=== PATIENT | female | born 1985 | race African-American/Black ===

== ENCOUNTER 2022-01-30 02:18 | Emergency (ER) | payer OTHER ==
[2022-01-30] MEDS ORDERED: Bupivacaine PF 0.5% 30 ML VIAL ONE (03:38)
== END 2022-01-30 03:46 | disposition home or self-care (01) ==
LOC: CSHERS 02:18
DX: L73.9 Follicular disorder, unspecified (principal); G43.909 Migraine, unspecified, not intractable, without status migrainosus; I10 Essential (primary) hypertension; F17.210 Nicotine dependence, cigarettes, uncomplicated; Z79.899 Other long term (current) drug therapy
CPT/HCPCS: 99282; S0020

== ENCOUNTER 2024-07-16 20:59 | Emergency (ER) | payer BC, OTHER ==
[2024-07-16] MEDS ORDERED: Ibuprofen 200 MG TAB ONE (22:20)
[2024-07-16] MEDS ORDERED: Acetaminophen 500 MG TAB ONE (22:21)
== END 2024-07-16 23:05 | disposition left against medical advice (07) ==
LOC: CSHERS 20:59
DX: Z53.21 Procedure and treatment not carried out due to patient leaving prior to being seen by health care provider (principal)

== ENCOUNTER 2025-07-03 19:37 | Inpatient (IN) | payer BC ==
[2025-07-03] MEDS: NIFEdipine 10 MG CAP ONE (20:40)
[2025-07-03 20:45] VITALS: BMI 33.1
[2025-07-03] MEDS ORDERED: NIFEdipine 10 MG CAP PO PRN (20:53)
[2025-07-03] MEDS ORDERED: Calcium Gluc 4.6 MEQ/10 ML (100 MG/ML) SLOW IVP PRN ×2 (20:53→21:22)
[2025-07-03] MEDS: NIFEdipine 10 MG CAP PO SCH (20:54)
[2025-07-03 21:04] LABS: #Basophils 0.04 10x3/uL (0.0-0.2); #Eosinophils 0.12 10x3/uL (0.0-0.5); #Monocytes 0.99 10x3/uL (0.0-1.1); #Neutrophils 9.18 10x3/uL (1.5-8.4); %Basophils 0.3 % (0.0-2.0); %Eosinophils 0.9 % (0.0-6.0); %Lymphocytes 19.1 % (18.0-47.0); %Monocytes 7.6 % (0.0-10.0); %Neutrophils 70.9 % (40.0-75.0); Hematocrit 27.8 % (34.9-44.5); Hemoglobin 9.7 g/dL (12.0-15.5); Mean Corpuscular Hemoglobin 26.6 pg (27.0-33.0); Mean Corpuscular Volume 76.2 fL (81.6-98.3); Platelet Count 298 10x3/uL (150-450); Red Blood Cell (RBC) Count 3.65 10x6/uL (3.90-5.03); White Blood Cell (WBC) Count 12.96 10x3/uL (3.5-10.5)
[2025-07-03] MEDS: NIFEdipine 10 MG CAP PO PRN (21:04)
[2025-07-03 21:11] LABS: ALT (SGPT) 8 U/L (Less than 34); AST (SGOT) 11 U/L (11-34); Albumin 2.9 g/dL (3.1-4.5); Alkaline Phosphatase 90 U/L (40-110); Anion Gap 13 mmol/L (10-20); BUN (Urea Nitrogen) 6 mg/dL (7.0-18.7); Bilirubin, Total 0.1 mg/dL (0.3-1.2); Calc. Creatinine Clearance 171 mL/min (70-130); Calcium 8.9 mg/dL (7.8-10.44); Carbon Dioxide 19 mmol/L (22-29); Chloride 110 mmol/L (98-107); Globulin 3.4 g/dL (2.4-3.5); Glucose 110 mg/dL (70-105); Potassium 3.7 mmol/L (3.5-5.1); Sodium 138 mmol/L (136-145)
[2025-07-03] MEDS ORDERED: hydrALAZINE 20 MG/ML VIAL SLOW IVP PRN (21:22)
[2025-07-03 21:28] LABS: Cocaine Metabolite Screen Negative (Negative); THC/Cannabinoid Screen Negative (Negative); Tricyclic Screen Negative (Negative)
[2025-07-03 21:34] LABS: Protein, Urine Random Quant 36.0 mg/dL (1-14)
[2025-07-03 21:55] LABS: Influenza A by NAA Not Detected (NotDetected); Influenza B by NAA Not Detected (NotDetected); SARS-CoV-2 NAA Rapid Test Not Detected (NotDetected)
[2025-07-04] MEDS: NIFEdipine XL 30 MG ER.TAB PO SCH ×2 (16:09→16:10)
[2025-07-04] MEDS: hydrALAZINE 20 MG/ML VIAL ONE (19:05)
[2025-07-06 10:00] LABS: #Basophils Less than 0.03 10x3/uL (0.0-0.2); #Eosinophils 0.06 10x3/uL (0.0-0.5); #Monocytes 1.34 10x3/uL (0.0-1.1); #Neutrophils 11.79 10x3/uL (1.5-8.4); %Basophils 0.1 % (0.0-2.0); %Eosinophils 0.4 % (0.0-6.0); %Lymphocytes 13.2 % (18.0-47.0); %Monocytes 8.7 % (0.0-10.0); %Neutrophils 76.3 % (40.0-75.0); Hematocrit 23.6 % (34.9-44.5); Hemoglobin 8.1 g/dL (12.0-15.5); Mean Corpuscular Hemoglobin 26.3 pg (27.0-33.0); Mean Corpuscular Volume 76.6 fL (81.6-98.3); Platelet Count 251 10x3/uL (150-450); Red Blood Cell (RBC) Count 3.08 10x6/uL (3.90-5.03); White Blood Cell (WBC) Count 15.44 10x3/uL (3.5-10.5)
[2025-07-06 10:21] LABS: ALT (SGPT) 14 U/L (Less than 34); AST (SGOT) 18 U/L (11-34); Albumin 2.7 g/dL (3.1-4.5); Alkaline Phosphatase 71 U/L (40-110); Anion Gap 10 mmol/L (10-20); BUN (Urea Nitrogen) 8 mg/dL (7.0-18.7); Bilirubin, Total 0.1 mg/dL (0.3-1.2); Calc. Creatinine Clearance 171 mL/min (70-130); Calcium 8.5 mg/dL (7.8-10.44); Carbon Dioxide 18 mmol/L (22-29); Chloride 112 mmol/L (98-107); Globulin 3.4 g/dL (2.4-3.5); Glucose 126 mg/dL (70-105); Potassium 3.4 mmol/L (3.5-5.1); Sodium 137 mmol/L (136-145)
[2025-07-06 14:00] LABS: Hematocrit 22.7 % (34.9-44.5); Hemoglobin 8.0 g/dL (12.0-15.5); Platelet Count 239 10x3/uL (150-450)
[2025-07-06 22:16] LABS: Protein, Urine Random Quant 13.0 mg/dL (1-14)
[2025-07-07 04:53] VITALS: BP 113/60; TEMP 98
== END 2025-07-07 13:42 | disposition home health service (06) | DRG 833 ==
LOC: CSHLD/OP 19:37 → CSHLD 21:10 → CSHANTE 07-05 12:08
PROVIDERS: ADMIT Obstetrics & Gynecology; ATTEND Obstetrics & Gynecology
DX: O11.3 Pre-existing hypertension with pre-eclampsia, third trimester (principal); O99.891 Other specified diseases and conditions complicating pregnancy; F17.210 Nicotine dependence, cigarettes, uncomplicated; O99.333 Smoking (tobacco) complicating pregnancy, third trimester; Z3A.31 31 weeks gestation of pregnancy
CPT/HCPCS: 36415; 71045; 71275; 76815; 76819; 80053; 80306; 82570; 82728; 83010; 83615; 84156; 84443; 85025; 85046; 85384; 87070; 87205; 87633; 87636; 93005; 93010; 93306; 94760; 99285; J0360; J0702

== ENCOUNTER 2025-07-23 18:00 | Inpatient (IN) | payer BC ==
[2025-07-23 20:47] VITALS: BMI 32.5
[2025-07-23] MEDS ORDERED: hydrALAZINE 20 MG/ML VIAL SLOW IVP PRN (21:14)
[2025-07-23] MEDS ORDERED: Acetaminophen 500 MG TAB PO PRN (21:14)
[2025-07-23] MEDS ORDERED: Lidocaine 1% (PF) 30 ML VIAL SC PRN (21:14)
[2025-07-23] MEDS ORDERED: Calcium Gluc 4.6 MEQ/10 ML (100 MG/ML) SLOW IVP PRN (21:14)
[2025-07-23] MEDS ORDERED: Ibuprofen 800 MG TAB PO PRN (21:14)
[2025-07-23] MEDS ORDERED: Diphenoxylate HCl/Atropine Tablet PO PRN ×2 (21:14)
[2025-07-23] MEDS ORDERED: Tranexamic Acid 1,000 MG/10 ML VIAL IVP PRN (21:14)
[2025-07-23] MEDS ORDERED: Ondansetron PF 4 MG/2 ML Vial IVP PRN (21:14)
[2025-07-23] MEDS ORDERED: Carboprost 250 MCG/ML AMP IM PRN (21:14)
[2025-07-23] MEDS ORDERED: Penicillin G Potassium 5 MILL.UNITS in Sodium Chloride 0.9% 100 ML IVPB SCH (21:15)
[2025-07-23] MEDS ORDERED: Oxytocin 30 units/NS 500 ML 500 ML IV SCH ×3 (21:15)
[2025-07-23 21:37] LABS: #Basophils Less than 0.03 10x3/uL (0.0-0.2); #Eosinophils 0.11 10x3/uL (0.0-0.5); #Monocytes 0.78 10x3/uL (0.0-1.1); #Neutrophils 7.75 10x3/uL (1.5-8.4); %Basophils 0.2 % (0.0-2.0); %Eosinophils 1.0 % (0.0-6.0); %Lymphocytes 18.3 % (18.0-47.0); %Monocytes 7.3 % (0.0-10.0); %Neutrophils 72.7 % (40.0-75.0); Hematocrit 25.9 % (34.9-44.5); Hemoglobin 9.2 g/dL (12.0-15.5); Mean Corpuscular Hemoglobin 26.5 pg (27.0-33.0); Mean Corpuscular Volume 74.6 fL (81.6-98.3); Platelet Count 272 10x3/uL (150-450); Red Blood Cell (RBC) Count 3.47 10x6/uL (3.90-5.03); White Blood Cell (WBC) Count 10.66 10x3/uL (3.5-10.5)
[2025-07-23 21:43] LABS: ALT (SGPT) 7 U/L (Less than 34); AST (SGOT) 11 U/L (11-34); Albumin 2.6 g/dL (3.1-4.5); Alkaline Phosphatase 105 U/L (40-110); Anion Gap 11 mmol/L (10-20); BUN (Urea Nitrogen) 8 mg/dL (7.0-18.7); Bilirubin, Total 0.1 mg/dL (0.3-1.2); Calc. Creatinine Clearance 166 mL/min (70-130); Calcium 8.7 mg/dL (7.8-10.44); Carbon Dioxide 18 mmol/L (22-29); Chloride 111 mmol/L (98-107); Globulin 3.7 g/dL (2.4-3.5); Glucose 128 mg/dL (70-105); Potassium 3.3 mmol/L (3.5-5.1); Sodium 137 mmol/L (136-145)
[2025-07-23 21:43] LABS: Protein, Urine Random Quant 49.0 mg/dL (1-14)
[2025-07-23 22:08] LABS: Syphilis Antibody Index 0.11 S/CO (<1.00 Non-Reactive)
[2025-07-23 22:32] LABS: HIV (1/2) Antibody/Antigen Non-Reactive (NonReactive); HIV 1/2 INDEX 0.14 S/CO (<1.00); Hep B Surf Ag - L&D Non-Reactive S/CO (NonReactive)
[2025-07-24] MEDS ORDERED: Penicillin G 2.5 MILL.units 2.5 MILL.UNITS in Premix 1 BAG IVPB SCH (01:15)
[2025-07-24] MEDS ORDERED: diphenhydrAMINE 50 MG/ML VIAL IVP PRN ×2 (02:53→10:01)
[2025-07-24] MEDS ORDERED: Acetaminophen 325 MG TAB PO PRN (02:53)
[2025-07-24] MEDS ORDERED: Ondansetron PF 4 MG/2 ML Vial IVP PRN ×3 (02:53→10:01)
[2025-07-24] MEDS ORDERED: Communication Order-Pharmacy FS SCH ×2 (03:00→10:15)
[2025-07-24] MEDS: Magnesium Sulfate 20 gm/500 ml 20 GM/500 ML BAG IVPB SCH (03:30)
[2025-07-24] MEDS: fentaNYL 2 mcg/Ropivacaine 0.2% Epidural 100 ML CADD EPIDURAL SCH (05:26)
[2025-07-24] MEDS ORDERED: Bupivacaine 0.25% HCL 30 ML VIAL ONE (07:00)
[2025-07-24] MEDS ORDERED: hydrALAZINE 20 MG/ML VIAL SLOW IVP PRN (09:18)
[2025-07-24] MEDS ORDERED: Bisacodyl 10 MG SUPP PR PRN (09:18)
[2025-07-24] MEDS ORDERED: Lanolin Ointment 7 GM TUBE TOP PRN (09:18)
[2025-07-24] MEDS ORDERED: Simethicone Chewable 80 MG TAB PO PRN (09:18)
[2025-07-24] MEDS ORDERED: Oxytocin 30 units/NS 500 ML 500 ML IV SCH (09:30)
[2025-07-24] MEDS ORDERED: Meperidine HCl/PF 25 MG (1 mL) VIAL SLOW IVP PRN (10:01)
[2025-07-24] MEDS: Ketorolac Tromethamine 30 MG (1 mL) VIAL IVP SCH (10:51)
[2025-07-24] MEDS ORDERED: Ibuprofen 800 MG TAB PO SCH (14:00)
[2025-07-24] MEDS: NIFEdipine XL 30 MG ER.TAB PO SCH (16:24)
[2025-07-24] MEDS: Acetaminophen 325 MG TAB PO PRN (16:27)
[2025-07-24] MEDS: Ondansetron PF 4 MG/2 ML Vial IVP PRN (16:28)
[2025-07-24] MEDS: Furosemide 40 MG (4 mL) VIAL SLOW IVP SCH (17:48)
[2025-07-24] MEDS: Ketorolac Tromethamine 30 MG (1 mL) VIAL IVP PRN (18:03)
[2025-07-25 05:40] LABS: Hematocrit 21.7 % (34.9-44.5); Hemoglobin 7.6 g/dL (12.0-15.5); Mean Corpuscular Hemoglobin 26.3 pg (27.0-33.0); Mean Corpuscular Volume 75.1 fL (81.6-98.3); Platelet Count 244 10x3/uL (150-450); Red Blood Cell (RBC) Count 2.89 10x6/uL (3.90-5.03); White Blood Cell (WBC) Count 12.37 10x3/uL (3.5-10.5)
[2025-07-25 09:28] LABS: ALT (SGPT) 11 U/L (Less than 34); AST (SGOT) 19 U/L (11-34); Albumin 2.2 g/dL (3.1-4.5); Alkaline Phosphatase 96 U/L (40-110); Anion Gap 11 mmol/L (10-20); BUN (Urea Nitrogen) 8 mg/dL (7.0-18.7); Bilirubin, Total 0.2 mg/dL (0.3-1.2); Calc. Creatinine Clearance 153 mL/min (70-130); Calcium 7.0 mg/dL (7.8-10.44); Carbon Dioxide 20 mmol/L (22-29); Chloride 105 mmol/L (98-107); Globulin 3.3 g/dL (2.4-3.5); Glucose 114 mg/dL (70-105); Potassium 4.2 mmol/L (3.5-5.1); Sodium 132 mmol/L (136-145)
[2025-07-25] MEDS: NIFEdipine XL 30 MG ER.TAB PO SCH (11:10)
[2025-07-25] MEDS: Furosemide 20 MG (2 mL) VIAL SLOW IVP SCH (11:11)
[2025-07-25] MEDS: Ibuprofen 800 MG TAB PO SCH (11:11)
[2025-07-25] MEDS: Sodium Ferric Gluconate 250 MG in Sodium Chloride 0.9% 250 ML 250 ML IVPB SCH (11:11)
[2025-07-25] MEDS: Ferrous Sulfate 325 MG TAB PO SCH (11:12)
[2025-07-25] MEDS: CEFAZOLIN 2 GM VIAL ONE (11:12)
[2025-07-25] MEDS: fentaNYL/Ropivacaine Epidural 100 ML ONE (11:12)
[2025-07-25] MEDS: Oxytocin 10 UNITS/ML VIAL ONE ×2 (11:13)
[2025-07-25] MEDS ORDERED: Acetaminophen 325 MG TAB PO PRN (19:19)
[2025-07-25] MEDS: HYDROcodone/Acetaminophen 5/325 mg Tablet PO PRN (19:24)
[2025-07-26] MEDS ORDERED: Acetaminophen 325 MG TAB PO PRN ×2 (02:11→07:04)
[2025-07-26 06:29] LABS: #Basophils Less than 0.03 10x3/uL (0.0-0.2); #Eosinophils 0.09 10x3/uL (0.0-0.5); #Monocytes 1.13 10x3/uL (0.0-1.1); #Neutrophils 7.31 10x3/uL (1.5-8.4); %Basophils 0.2 % (0.0-2.0); %Eosinophils 0.9 % (0.0-6.0); %Lymphocytes 14.6 % (18.0-47.0); %Monocytes 11.2 % (0.0-10.0); %Neutrophils 72.7 % (40.0-75.0); Hematocrit 21.3 % (34.9-44.5); Hemoglobin 7.4 g/dL (12.0-15.5); Mean Corpuscular Hemoglobin 26.2 pg (27.0-33.0); Mean Corpuscular Volume 75.5 fL (81.6-98.3); Platelet Count 255 10x3/uL (150-450); Red Blood Cell (RBC) Count 2.82 10x6/uL (3.90-5.03); White Blood Cell (WBC) Count 10.06 10x3/uL (3.5-10.5)
[2025-07-26] MEDS: NIFEdipine XL 60 MG ER.TAB PO SCH (08:07)
[2025-07-26] MEDS: Furosemide 20 MG TAB PO SCH (08:07)
[2025-07-26] MEDS: HYDROcodone/Acetaminophen 5/325 mg Tablet PO PRN (13:53)
[2025-07-27] MEDS: NIFEdipine XL 90 MG ER.TAB PO SCH (08:44)
[2025-07-27] MEDS: Sodium Ferric Gluconate 250 MG in Sodium Chloride 0.9% 250 ML 250 ML IVPB SCH (09:30)
[2025-07-28 07:37] VITALS: TEMP 98.3
[2025-07-28] MEDS: hydrALAZINE 20 MG/ML VIAL SLOW IVP SCH ×2 (08:08→09:09)
[2025-07-28] MEDS: Preparation H Ointment 28 GM TUBE TOP PRN (15:05)
[2025-07-28 16:49] VITALS: BP 150/94
[2025-07-28] MEDS ORDERED: NIFEdipine XL 60 MG ER.TAB PO SCH (21:00)
== END 2025-07-28 18:05 | disposition left against medical advice (07) | DRG 783 ==
LOC: CSHLD 19:55 → UNDOADMIN 19:55 → CSHLD 21:14 → UNDOADMIN 07-24 11:55 → CSHLD 07-24 11:55 → CSHPP 07-25 10:50 → UNDODISIN 07-28 13:50
PROVIDERS: ADMIT Family Medicine; ATTEND Family Medicine
PROC: 10D00Z1 Extraction of Products of Conception, Low, Open Approach (ICD-10-PCS; principal; 2025-07-24)
PROC: 0UB60ZZ Excision of Left Fallopian Tube, Open Approach (ICD-10-PCS; 2025-07-24)
PROC: 3E0P7VZ Introduction of Hormone into Female Reproductive, Via Natural or Artificial Opening (ICD-10-PCS; 2025-07-24)
DX: O11.4 Pre-existing hypertension with pre-eclampsia, complicating childbirth (principal); J96.01 Acute respiratory failure with hypoxia; J45.901 Unspecified asthma with (acute) exacerbation; Z37.0 Single live birth; Z3A.34 34 weeks gestation of pregnancy; O60.14X0 Preterm labor third trimester with preterm delivery third trimester, not applicable or unspecified; Z90.721 Acquired absence of ovaries, unilateral; O99.334 Smoking (tobacco) complicating childbirth; G47.33 Obstructive sleep apnea (adult) (pediatric); O99.53 Diseases of the respiratory system complicating the puerperium; Z53.29 Procedure and treatment not carried out because of patient's decision for other reasons
CPT/HCPCS: 36415; 51702; 80053; 82570; 84156; 85025; 85027; 86780; 86850; 86900; 86901; 87340; 87389; 88302; 88307; J0360; J0665; J1885; J1940; J2250; J2274; J2405; J2590; J2916; J3010; J3475; J7050; J7120

== ENCOUNTER 2025-07-30 15:00 | Emergency (ER) | payer BC ==
[2025-07-30] MEDS ORDERED: Magnesium 2 GM/50 ML BAG (IN WATER) ONE (15:37)
[2025-07-30] MEDS ORDERED: hydrALAZINE 20 MG/ML VIAL ONE (15:37)
[2025-07-30 15:57] LABS: #Basophils 0.03 10x3/uL (0.0-0.2); #Eosinophils 0.19 10x3/uL (0.0-0.5); #Monocytes 1.07 10x3/uL (0.0-1.1); #Neutrophils 7.65 10x3/uL (1.5-8.4); %Basophils 0.2 % (0.0-2.0); %Eosinophils 1.6 % (0.0-6.0); %Lymphocytes 23.9 % (18.0-47.0); %Monocytes 8.8 % (0.0-10.0); %Neutrophils 63.2 % (40.0-75.0); Hematocrit 32.8 % (34.9-44.5); Hemoglobin 11.4 g/dL (12.0-15.5); Mean Corpuscular Hemoglobin 26.5 pg (27.0-33.0); Mean Corpuscular Volume 76.1 fL (81.6-98.3); Platelet Count 434 10x3/uL (150-450); Red Blood Cell (RBC) Count 4.31 10x6/uL (3.90-5.03); White Blood Cell (WBC) Count 12.11 10x3/uL (3.5-10.5)
[2025-07-30 16:02] LABS: Glucose, Urine (Dipstick) Normal (Negative); Leukocyte 25 (Negative); Protein, Urine (Dipstick) 15 mg/dl (Neg-Trace); Specific Gravity, Urine 1.015 (1.005-1.030)
[2025-07-30 16:14] LABS: ALT (SGPT) 15 U/L (Less than 34); AST (SGOT) 20 U/L (11-34); Albumin 2.9 g/dL (3.1-4.5); Alkaline Phosphatase 121 U/L (40-110); Anion Gap 15 mmol/L (10-20); BUN (Urea Nitrogen) 18 mg/dL (7.0-18.7); Bilirubin, Total 0.2 mg/dL (0.3-1.2); Calc. Creatinine Clearance 0 mL/min (70-130); Calcium 9.1 mg/dL (7.8-10.44); Carbon Dioxide 21 mmol/L (22-29); Chloride 108 mmol/L (98-107); Globulin 4.1 g/dL (2.4-3.5); Glucose 88 mg/dL (70-105); Magnesium 1.8 mg/dL (1.6-2.6); Potassium 4.0 mmol/L (3.5-5.1); Sodium 140 mmol/L (136-145)
[2025-07-30 16:16] LABS: Bacteria/HPF None Seen HPF (None Seen); CAUTI Indications for Culture Pelvic or flank pain; Urine Culture Reflex No No; WBC/HPF 0-3 HPF (0-3)
[2025-07-30] MEDS ORDERED: Calcium Gluc 4.6 MEQ/10 ML (100 MG/ML) SLOW IVP PRN (16:23)
[2025-07-30] MEDS ORDERED: hydrALAZINE 20 MG/ML VIAL SLOW IVP PRN (16:23)
[2025-07-30] MEDS ORDERED: Magnesium Sulfate 20 gm/500 ml 20 GM/500 ML BAG IVPB SCH (16:30)
[2025-07-30 17:04] LABS: Protein, Urine Random Quant 12.0 mg/dL (1-14)
[2025-07-30] MEDS ORDERED: Sertraline 25 MG TAB PO SCH (18:00)
[2025-07-30] MEDS ORDERED: NIFEdipine XL 30 MG ER.TAB PO SCH (21:00)
== END 2025-07-30 17:55 | disposition admitted as inpatient to this hospital (09) ==
LOC: CSHERS 15:00
DX: O15.2 Eclampsia complicating the puerperium (principal); F17.210 Nicotine dependence, cigarettes, uncomplicated; Z79.899 Other long term (current) drug therapy
CPT/HCPCS: 80053; 81001; 82570; 83615; 83735; 84156; 85025; 93005; 93010; 96374; J0360; J3475